=== PATIENT | male | born 1955 | race Caucasian/White ===

== ENCOUNTER → 2016-12-26 | Outpatient (CLI) | payer BC ==
[~2016-12-26] MED LIST: ADVAIR 250-501 EACH INH; ASPIRIN EC81 MG PO; LIPITOR10 MG PO; NORCO 5-325 TA1 EACH PO; PROAIR HFA8.5 GM INH; SPIRIVA HANDIHA1 KIT INH
[2016-12-26 17:01] LABS: BASOPHIL # 0.1 K/uL (0.0-0.2); BASOPHIL % 0.7 %; EOSINOPHIL # 0.3 K/uL (0.0-0.5); EOSINOPHIL % 2.4 %; HEMATOCRIT 45.2 % (37.0-53.0); HEMOGLOBIN 15.2 g/dL (12.0-17.0); IMMATURE GRANULOCYTE % 0.4 %; LYMPHOCYTE # 1.8 K/uL (0.8-4.0); LYMPHOCYTE % 17.4 %; MCH 32.1 pg (27.0-34.0); MCHC 33.6 gm/dL (32.0-36.5); MCV 95.6 fl (83.0-98.0); MONOCYTE # 0.5 K/uL (0.0-1.0); MPV 10.3 fl (9.4-12.4); NEUTROPHIL # (ANC) 7.8 K/uL (1.4-9.0); NEUTROPHIL % 74.1 %; NRBC % 0 /100WBC (0-0.00); PLATELET COUNT 342 K/uL (150-450); RBC 4.73 M/uL (4.00-6.00); RDW-CV 12.8 % (11.9-14.6); WBC 10.5 K/uL (4.0-11.0)
[2016-12-26 17:21] LABS: BLOOD UREA NITROGEN 11 mg/dL (6-24); CALCIUM 8.7 mg/dL (8.5-10.5); CHLORIDE 107 mMol/L (96-110); CO2 27 mMol/L (22-32); CREATININE 1.1 mg/dL (0.6-1.3); ESTIMATED GFR (MDRD EQUATION) > 60; SODIUM 140 mMol/L (135-145)
== END | disposition disaster alternative care site (69) ==
LOC: LNHI 16:46
PROVIDERS: Surgery Vascular Surgery
DX: I70.219 Atherosclerosis of native arteries of extremities with intermittent claudication, unspecified extremity (principal)

== ENCOUNTER → 2017-01-04 | Outpatient (CLI) | payer BC | END | disposition disaster alternative care site (69) | LOC: GRAD 12-29 16:00 | DX: T82.868A Thrombosis due to vascular prosthetic devices, implants and grafts, initial encounter (principal); I73.9 Peripheral vascular disease, unspecified; I74.5 Embolism and thrombosis of iliac artery ==

== ENCOUNTER 2017-01-13 10:00 | Inpatient (IN) | payer BC ==
[~2017-01-13] VITALS: Ht 188 cm; Wt 77.3 kg
--- NOTE | ~2017-01-13 | DS ---
PATIENT'S NAME: SHUN SPRINGER [facility] AGE: 61 Y [address] ROOM: [address] [place] [id number] LOCATION: GPCU ADMIT DATE: 01/20/2017 Discharge Summary DISCHARGE DATE: 01/22/2017 FAMILY PHYSICIAN: Rory Herbert MD ATTENDING PHYSICIAN: Robbie Padilla FINAL DIAGNOSIS: Peripheral vascular disease with severe claudication. SECONDARY DIAGNOSIS: Chronic obstructive pulmonary disease without exacerbation. PROCEDURES: Redo femoral-femoral bypass with Dr. Padilla on 01/20/2017. CONSULTATIONS: Hospitalist for medical management. HOSPITAL COURSE: This is a 61-year-old male admitted to [facility] on 01/20/2017, after a redo fem-fem bypass. The patient with previous fem-fem bypass approximately 10 years ago for left common iliac occlusion. This previous fem-fem bypass is occluded, and the patient's severe claudication has returned. See the patient's history and physical for full patient details. The patient tolerated the procedure well and was found to have strong DP pulses bilaterally after surgery. After recovery, the patient was admitted to PCU for monitoring on telemetry, vitals, lab, surgical site, pain management, medication administration, and nursing assistance. Overnight, the patient was placed on bed rest. He was continued on aspirin and Lipitor. IV antibiotic, clindamycin, was continued for 48 hours postoperatively. Hospitalists were consulted for medical management. The patient did experience some mild nausea postoperatively and received p.r.n. Phenergan with relief. On postop day #1, the patient was found to be doing well with nausea resolved. His incisional dressings remained clean, dry, and intact with good palpable pulses bilaterally. His Brothers was discontinued, and the patient was allowed out of bed. On postop day #2, the patient's pain was found to be well controlled. His incisions were found to be clean, dry, and free of infection without signs of hematoma. His pulses remained palpable on examination. The patient was able to tolerate ambulation in the halls without difficulty. The patient was determined to be in a stable condition to be discharged home. DIAGNOSTICS: Labs: White blood cell count trending 13.1 and 11.5, hemoglobin trending 13.1 and 13.1. DISCHARGE ORDERS: 1. The patient is to be discharged home on regular diet. He is to avoid heavy lifting for 2 weeks. He may begin showering on 01/23/2017, and covering the groins with dry gauze and Tegaderm for one week. He is to PATIENT'S NAME: SHUN SPRINGER [facility] AGE: 61 Y [address] ROOM: [place] [address] LOCATION: GPCU ADMIT DATE: 01/20/2017 Discharge Summary DISCHARGE DATE: 01/22/2017 FAMILY PHYSICIAN: Rory Herbert MD ATTENDING PHYSICIAN: Robbie Padilla keep his sites dry. He is to follow up with Dr. Padilla in 2 weeks. He is to follow up with his primary care provider in 2 weeks. He is to report any signs or symptoms of infection including redness, swelling, fevers, chills, or drainage. DISCHARGE MEDICATIONS: 1. Atorvastatin 10 mg p.o. daily. 2. Aspirin 81 mg p.o. daily. 3. Advair Diskus 250/50 one puff inhaled twice daily. 4. Spiriva 1 pill inhalation once daily. 5. Albuterol sulfate two puffs inhaled four times daily as needed for shortness of breath. 6. [place] 5/325, 1 to 2 tabs every 4 hours as needed for pain. DISPOSITION: The patient is discharged home in a stable condition. He is to follow discharge orders as prescribed. Education about discharge including incisional care, prescriptions, diet, activity, and followup appointments was given to the patient. The patient verbalized understanding of the plan and had no further questions or concerns. He is to follow discharge orders as prescribed. SHANE COX APRN FOR ROBBIE PADILLA MD TO/modl /[id number] d: 01/27/17 0214 t: 02/01/17 1544, DISCHARGE SUMMARY
--- NOTE | ~2017-01-13 | OR ---
PATIENT'S NAME: SHUN SPRINGER [facility] AGE: 61 Y [address] ROOM: [address] [address] LOCATION: GPCU ADMIT DATE: 01/20/2017 OR/Procedure Report DISCHARGE DATE: FAMILY PHYSICIAN: DIEGO MONTALVO MD ATTENDING PHYSICIAN: ROBBIE PADILLA SURGEON: Robbie Padilla MD LAMP TESTER AND INSPECTOR: DATE OF PROCEDURE: 01/20/2017 PREOPERATIVE DIAGNOSIS: Occluded fem-fem bypass. POSTOPERATIVE DIAGNOSIS: Occluded fem-fem bypass. PROCEDURE PERFORMED: Redo fem-fem bypass. HOT MILL ROLLER: ERROL Sales ANESTHESIA: General. ESTIMATED BLOOD LOSS: 150 mL. FINDINGS: Palpable pulses bilaterally in the feet at the end of the case. DESCRIPTION OF PROCEDURE: The patient was brought to the operating room, placed supine on the operating room table, placed under general anesthesia. Prepped and draped in a sterile manner, had placement of a Brothers catheter. Preoperative time-out was performed. The patient received preoperative antibiotics. The patient had a previous fem-fem bypass done approximately 10 years ago. We made vertical incisions in the scars from both of those incisions. We dissected down the fascia, incised the fascia in a longitudinal manner. We then dissected all the scar tissue away from the common femoral as well as from the graft on both sides. Once we had adequate exposure on both sides, we began with the recipient site on the left side, we clamped both proximally and distally on the artery after giving 7000 units of heparin. The patient received a total of 10,000 for the entire case and was reversed with protamine at the end. After clamping on the artery, we removed the old graft and then resected and the anastomosis, arteries were grossly patent. We then did a standard 5-0 Prolene anastomosis from the graft to the artery. We used an 8 mm ringed [place] PTFE. After this anastomosis was complete, we then transected the graft in the donor groin which was the right and then we dissected the scar tissue around the graft pathway and we were able to extract the graft from this path. We then tunneled the new graft in the similar fashion from the left to the right to the previously placed graft pathway. We then clamped proximally and distally on the common femoral on the right and then removed the remaining remnant graft from the anastomosis. We then did PATIENT'S NAME: SHUN SPRINGER [facility] AGE: 61 Y [address] ROOM: [place] [address] LOCATION: [facility] ADMIT DATE: 01/20/2017 OR/Procedure Report DISCHARGE DATE: FAMILY PHYSICIAN: DIEGO MONTALVO MD ATTENDING PHYSICIAN: ROBBIE PADILLA another standard 5-0 Prolene anastomosis from the graft to the artery. We removed the clamps. There was excellent flow in the graft. There was a strong DP pulse bilaterally. Hemostasis was achieved with the use of protamine as well as thrombin and locally in the wound. Deep layers were closed with 2-0 and 3-0 Vicryl. Skin was closed with running 4-0 Monocryl and then covered with Tegaderm. The patient woke in the operating room and then transferred to the recovery room for postoperative care. ROBBIE PADILLA MD FKM/modl /[id number] d: 01/20/17 1627 t: 01/21/17 0959, OPERATIVE SUMMARY
--- NOTE | ~2017-01-13 | CON ---
PATIENT'S NAME: SHUN SPRINGER [facility] AGE: 61 Y [address] ROOM: [place] [address] LOCATION: GPCU ADMIT DATE: 01/20/2017 Consultation DISCHARGE DATE: FAMILY PHYSICIAN: DIEGO MONTALVO MD ATTENDING PHYSICIAN: RIK DUMONT DATE OF CONSULTATION: 01/20/2017 REASON FOR CONSULTATION: Medical management. HISTORY OF PRESENT ILLNESS: A 61-year-old gentleman with a past medical history of hyperlipidemia and peripheral vascular disease, status post left-sided fem-fem bypass about 10 years ago. He was admitted for an elective fem-fem bypass revision which was done by [facility] and has been admitted under their service. On my encounter, he is really hard of hearing. He states that he has some shortness of breath, but no chest pain, and some soreness at the surgical incision site. He denied any headache, any trouble with the eyes, any trouble swallowing, any cough production, chest pain, palpitations, abdominal pain, burning on urination, or any extremity swelling. REVIEW OF SYSTEMS: All other systems reviewed and were negative except as mentioned in the HPI. PAST MEDICAL HISTORY: Meniere disease, peripheral vascular disease, hyperlipidemia, and tobaccoism. SOCIAL HISTORY: Coc-xcys-wfud smoking for 40 years. No alcohol or drug abuse. FAMILY HISTORY: Significant for coronary artery disease in father. MEDICATIONS: Current medications include: 1. Albuterol. 2. Aspirin. 3. Atorvastatin. 4. Advair. 5. Spiriva. PHYSICAL EXAMINATION: VITAL SIGNS: Blood pressure is 111/65, 16, 78, afebrile. GENERAL: No acute distress. Alert and oriented x3. PATIENT'S NAME: SHUN SPRINGER [facility] AGE: 61 Y [address] ROOM: [place] [address] LOCATION: GPCU ADMIT DATE: 01/20/2017 Consultation DISCHARGE DATE: FAMILY PHYSICIAN: DIEGO MONTALVO MD ATTENDING PHYSICIAN: RIK DUMONT HEENT: Head: Atraumatic, normocephalic. Eyes: Nonicteric. No pallor. Oropharynx: Moist mucous membranes. CARDIOVASCULAR: S1 and S2. No murmurs, gallops, or rubs. LUNGS: Clear to auscultation bilaterally. ABDOMEN: Soft, nontender, and nondistended. Bowel sounds are present. Bilateral groin incision sites draped. EXTREMITIES: No clubbing, cyanosis, or edema. MUSCULOSKELETAL: No muscle tenderness or swelling noted. PSYCHIATRIC: Normal affect, mood, and speech. SKIN: No bruises noted. ASSESSMENT AND PLAN: 1. Peripheral vascular disease, status post fem-fem bypass. The patient is recovering well. 2. Chronic obstructive pulmonary disease without exacerbation. Continue albuterol and Advair as well as Spiriva. 3. Deep venous thrombosis prophylaxis per [facility]. We will continue to follow. MD ROLANDO VELASQUEZ/miya /[id number] d: 01/20/17 1437 t: 01/21/17 0819, CONSULTATION REPORT
[2017-01-13] MEDS ORDERED: ADVAIR 250-501 EACH INH (10:27)
[2017-01-13] MEDS ORDERED: ASPIRIN EC81 MG PO (10:27)
[2017-01-13] MEDS ORDERED: LIPITOR10 MG PO (10:27)
[2017-01-13] MEDS ORDERED: SPIRIVA HANDIHA1 KIT INH (10:28)
[2017-01-13] MEDS ORDERED: PROAIR HFA8.5 GM INH (10:28)
[2017-01-20 15:35] LABS: ANION GAP 9.7 (10.0-19.0); CREATININE 1.3 mg/dL (0.6-1.3); POTASSIUM 4.7 mMol/L (3.7-5.1)
--- NOTE | 2017-01-20 17:17 | NUR ---
Significant Event: FEM-FEM BYPASS TODAY WITH DR DUMONT. PRIMAPORE DRESSING TO BILATERAL GROIN SITES WITH DRESSINGS C/D/I. PALPABLE PEDAL PULSES, CSM WNL. NORCO 1 TAB GIVEN AROUND 1640 FOR 5/10 PAIN ON SCALE. BEDREST X 24 HOURS. VILLARREAL TO DD WITH 275ML YELLOW UOP. NO BM NOTED. PIV TO L) INNER FA WITH D51/2NS WITH 20KCL AT 75ML/HR. ANCEF X 3 DOSES ORDERED. VSS ON RA. LUNGS CLEAR/DIMINISHED BASES. DR FELIZ NOTIFIED AND SEEN FOR HOSPITALIST CONSULT TO MEDICALLY MANAGE. RESTING COMFORTABLY THIS AFTERNOON. TOLERATING CRACKERS AND WATER WITH EPISODES OF NAUSEA/DRY HEEVES RESOLVING ON OWN. REGULAR DIET ORDERED FOR TONIGHT. Follow up: MONITOR AND MANAGE PAIN CONTROL. BEDREST X24 HOURS. IVF AT 75ML/HR FOR 24 HOURS.
--- NOTE | 2017-01-21 04:27 | NUR ---
Significant Event: A/0 X 3, REMAINS ON BEDREST FOR 24 HOURS. WILL BE OFF AT 1230 ALONG WITH D/C OF D5-1/2NS-20KCL AT SAME TIME. HAD NAUSEA AT START OF SHIFT, ZOFRAN WAS GIVEN AT 1720 BUT DID NOT HELP, GAVE SPRITE WHICH DID NOT HELP. OBTAINED NEW ORDER FOR IM PHENERGEN 25 MG. OFFERED THIS TO THE PATIENT BUT HE STATED THE NAUSEA WAS STARTING TO RECEDE AND DID NOT WANT THE PHENERGEN. SINCE THAT TIME HE HAS NOT COMPLAINED OF NAUSEA. HE ALSO HAS NOT REQUESTED ANY PAIN MEDS. LAST PAIN MED WAS MORPHINE GIVEN AT 1840. BOTH GROIN SITES REMAIN UNCHANGED WITH NO COMPLICATIONS. HE HAS SLEPT WELL THIS EVENING. VILLARREAL 1250 UOP. Follow up:
[2017-01-21 04:34] LABS: BASOPHIL % 0.2 %; HEMATOCRIT 38.3 % (37.0-53.0); HEMOGLOBIN 13.1 g/dL (12.0-17.0); IMMATURE GRANULOCYTE # 0.1 K/uL (0.0-0.3); IMMATURE GRANULOCYTE % 0.6 %; LYMPHOCYTE # 1.1 K/uL (0.8-4.0); MCHC 34.2 gm/dL (32.0-36.5); MCV 96.5 fl (83.0-98.0); MONOCYTE # 0.7 K/uL (0.0-1.0); MONOCYTE % 5.2 %; MPV 9.9 fl (9.4-12.4); NEUTROPHIL # (ANC) 11.3 K/uL (1.4-9.0); NRBC % 0 /100WBC (0-0.00); RBC 3.97 M/uL (4.00-6.00); RDW-CV 13.2 % (11.9-14.6); WBC 13.1 K/uL (4.0-11.0)
[2017-01-21 04:35] LABS: PLATELET COUNT 224 K/uL (150-450)
[2017-01-21 04:47] LABS: ANION GAP 10.8 (10.0-19.0); BLOOD UREA NITROGEN 9 mg/dL (6-24); CHLORIDE 108 mMol/L (96-110); CO2 27 mMol/L (22-32); ESTIMATED GFR (MDRD EQUATION) > 60; POTASSIUM 4.8 mMol/L (3.7-5.1); SODIUM 141 mMol/L (135-145)
--- NOTE | 2017-01-21 17:22 | NUR ---
Significant Event: VSS ON RA. NO C/O PAIN. INDEPENDENTLY SHOWERED TODAY WITH RIGHT FOOT ULCER PAINTED WITH BETADINE AND WRAPPED WITH GAUZE AFTER SHOWER. DRESSING D/I. TO BE CHANGED BID. AMBULATES IN ROOM UP AD HANNA AND TO BATHROOM WITH BM X1 NOTED. PIV TO L) HAND SLUGGISH TO FLUSH WITH VANCOMYCIN GIVEN AT 1100 TODAY WITHOUT DIFFICULTY. ACCUCHECKS ACHS WITH MILD SSI. 4 UNITS NOVOLOG TIDCM ADDED TO REGIMEN. Follow up: CONT TO MANAGE PER PLAN OF CARE. SURGERY PLANNED FOR MONDAY- RIGHT TOE AMPUTATION WITH I/D OF RIGHT FOOT ULCER.
--- NOTE | 2017-01-21 17:29 | NUR ---
Significant Event: VSS ON RA. VILLARREAL DC'D AT 1000 WITH NO PROBLEMS VOIDING PER URINAL. TOTAL 1575ML UOP. PIV TO L) FA SL'D WITH LAST ANCEF GIVEN AT 1000. OFF BEDREST, AMBULATING TO BATHROOM AND IN ROOM INDEPENDENTLY. ORDERS TO WALK IN HALLS TOMORROW. BILATERAL GROINS SOFT WITH DRESSINGS C/D/I. TYLENOL 650MG PO GIVEN AROUND 1555 TODAY FOR PAIN 4/10 ON SCALE WITH MINIMAL RELIEF NOTED, HOWEVER PATIENT STATES PAIN TOLERABLE TO GROINS. Follow up: HOME TOMORROW IF TOLERATING WALKING IN HALLS AND NO FURTHER COMPLICATIONS.
--- NOTE | 2017-01-22 04:22 | NUR ---
Significant Event: Patient is alert and oriented x 3. VSS on room air. HRs in the 70s. SBPs in the 120s-140s. Afebrile. Up ad tangela in room. Dressings to bilateral groin, both clean, dry, and intact. Voiding well. Tylenol given last at 2005. Voiding well. Left forearm IV, saline locked. Patient is pleasant and cooperative with cares. Follow up: Possible dismissal to home today
[2017-01-22 05:19] LABS: BASOPHIL # 0.1 K/uL (0.0-0.2); BASOPHIL % 0.5 %; EOSINOPHIL # 0.2 K/uL (0.0-0.5); EOSINOPHIL % 1.9 %; HEMATOCRIT 38.9 % (37.0-53.0); HEMOGLOBIN 13.1 g/dL (12.0-17.0); IMMATURE GRANULOCYTE # 0.1 K/uL (0.0-0.3); IMMATURE GRANULOCYTE % 0.4 %; LYMPHOCYTE # 1.6 K/uL (0.8-4.0); LYMPHOCYTE % 13.9 %; MCH 32.3 pg (27.0-34.0); MCHC 33.7 gm/dL (32.0-36.5); MCV 95.8 fl (83.0-98.0); MONOCYTE # 0.9 K/uL (0.0-1.0); MONOCYTE % 7.9 %; MPV 9.9 fl (9.4-12.4); NEUTROPHIL # (ANC) 8.6 K/uL (1.4-9.0); NEUTROPHIL % 75.4 %; NRBC % 0 /100WBC (0-0.00); PLATELET COUNT 208 K/uL (150-450); RBC 4.06 M/uL (4.00-6.00); RDW-CV 13.2 % (11.9-14.6); WBC 11.5 K/uL (4.0-11.0)
[2017-01-22] MEDS ORDERED: NORCO 5-325 TA1 EACH PO (11:08)
--- NOTE | 2017-01-22 12:24 | NUR ---
PATIENT AND GIVEN WRITTEN DISMISSAL INSTRUCTIONS INCLUDING NEW HOME MEDICATION LIST WITH INFORMATION ON NEW MEDS, PRECRIPTIONS, FOLLOW-UP APPOINTMENTS, ACTIVITY RESTRICTIONS FOR 1 WEEK WELL INCISION CARE WITH DRESSING INSTRUCTIONS TO KEEP BILATERAL GROIN SITES CLEAN, DRY. PIV REMOVED FROM LEFT FA WITH GAUZE AND COBAN APPLIED. TELEMETRY DC'D AND PATIENT DRESSED. TAKEN TO FRONT OF [facility] VIA WHEELCHAIR ACCOMPANIED BY NURSE AIDE, AND BELONGINGS AT 1150.
== END 2017-01-22 11:50 | disposition disaster alternative care site (69) | DRG 254 ==
LOC: GPCU 01-20 05:30
PROVIDERS: ADMIT Surgery Vascular Surgery
PROC: 041 Lower Arteries, Bypass (ICD-10-PCS; principal; 2017-01-20)
DX: I70.218 Atherosclerosis of native arteries of extremities with intermittent claudication, other extremity (principal); J44.9 Chronic obstructive pulmonary disease, unspecified; Z95.1 Presence of aortocoronary bypass graft; E78.5 Hyperlipidemia, unspecified; F17.210 Nicotine dependence, cigarettes, uncomplicated; H81.09 Meniere's disease, unspecified ear; Z79.82 Long term (current) use of aspirin
CPT/HCPCS: J0690; J1100; J1644; J1650; J2001; J2250; J2270; J2405; J2720; J3010; J3480; J7030; J7040